=== PATIENT | female | born 1995 | race African-American/Black ===

== ENCOUNTER 2024-08-04 08:55 | Emergency (ER) | payer OTHER ==
[~2024-08-04] VITALS: Ht 157.5 cm; Wt 72.1 kg
[~2024-08-04 08:55] MED LIST: 0.9126SP BNOSTRILS; ALBU8.5H8 IH; AZIT250T13 PO; CIPR10DR RIGHTEYE; FLUT16SP BNOSTRILS; LORA10TA7 PO
[2024-08-04] MEDS ORDERED: RALT400T PO (11:01)
[2024-08-04] MEDS ORDERED: LEVO1.5T38 PO (11:01)
[2024-08-04] MEDS ORDERED: EMTR1TAB6 PO (11:01)
[2024-08-04 11:12] LABS: BASOPHILS % (AUTO) 0.8 % (0.0-2.0); EOSINOPHILS # (AUTO) 0.2 K/uL (0.0-0.7); EOSINOPHILS % (AUTO) 5.5 % (0.0-7.0); HEMOGLOBIN 10.9 g/dL (10.9-14.3); LYMPHOCYTES # (AUTO) 1.6 K/uL (0.8-4.8); LYMPHOCYTES % (AUTO) 47.4 % (20.5-51.5); MEAN CORPUSCULAR HEMOGLOBIN 27.2 uug (24.7-32.8); MEAN CORPUSCULAR HGB CONC 33 g/dL (32.3-35.6); MEAN CORPUSCULAR VOLUME 82.1 fL (75.5-95.3); MONOCYTES # (AUTO) 0.5 K/uL (0.1-1.30); MONOCYTES % (AUTO) 14.8 % (0.0-11.0); NEUTROPHILS # (AUTO) 1.1 K/uL (1.8-8.9); NEUTROPHILS % (AUTO) 31.5 % (38.5-71.5); PLATELET COUNT (AUTO) 298 K/uL (179-408); RED BLOOD CELL COUNT(AUTO) 4.02 MIL/uL (3.63-4.92); RED CELL DISTRIBUTION WIDTH 14.2 % (12.3-17.7); WHITE BLOOD COUNT (AUTO) 3.4 K/uL (3.8-11.8)
[2024-08-04] MEDS ORDERED: CEFI400C4 PO (11:27)
[2024-08-04] MEDS ORDERED: DOXY100C5 PO (11:27)
[2024-08-04 11:29] VITALS: BP 108/76; TEMP 97.8; O2SAT 99
[2024-08-04 11:31] LABS: ALANINE AMINOTRANSFERASE 15 U/L (14-59); ALBUMIN 3.4 g/dL (3.4-5.0); ALKALINE PHOSPHATASE 65 U/L (50-136); ASPARTATE AMINOTRANSFERASE 16 U/L (15-37); BILIRUBIN,DIRECT 0.1 mg/dL (0.0-0.2); BILIRUBIN,TOTAL 0.7 mg/dL (0.2-1.0); CALCIUM 8.8 mg/dL (8.5-10.1); CARBON DIOXIDE 27 mmol/L (21-32); CHLORIDE 105 mmol/L (98-107); CREATININE 0.8 mg/dL (0.6-1.3); GLUCOSE 92 mg/dL (74-106); POTASSIUM 3.8 mmol/L (3.5-5.1); SODIUM SERUM 141 mmol/L (136-145); TOTAL PROTEIN, SERUM 6.7 g/dL (6.4-8.2); UREA NITROGEN, BLOOD 14 mg/dL (7-18)
[2024-08-04 11:34] LABS: DIFFERENTIAL COMMENT 1
[2024-08-04 11:41] LABS: PREGNANCY TEST SERUM QUAN < 1 miul/L (0-6)
[2024-08-04 11:52] LABS: HIV-1 p24 ANTIGEN NON REACTIVE (NONREACTIVE); HIV-1/2 ANTIBODY NON REACTIVE (NONREACTIVE)
[2024-08-05 05:09] LABS: HEPATITIS B SURFACE AB, QUAL Non Reactive (.); HEPATITIS B SURFACE AG Negative (Negative); HEPATITIS C VIRUS ANTIBODY Non Reactive (Non Reactive)
[2024-08-06 01:09] LABS: *CHLAMYDIA NAA Negative (Negative); *GC NAA Negative (Negative); *TRIC.VAG. NAA Negative (Negative)
== END 2024-08-04 11:29 | disposition home or self-care (01) ==
LOC: ER 08:55
DX: T76.21XA Adult sexual abuse, suspected, initial encounter (principal); J45.909 Unspecified asthma, uncomplicated; R10.2 Pelvic and perineal pain; Z79.3 Long term (current) use of hormonal contraceptives; Z79.624 Long term (current) use of inhibitors of nucleotide synthesis; Z88.0 Allergy status to penicillin; Z60.2 Problems related to living alone; Y08.89XA Assault by other specified means, initial encounter; Y93.89 Activity, other specified; Y92.89 Other specified places as the place of occurrence of the external cause; Y99.8 Other external cause status
CPT/HCPCS: 36415; 76856; 85025; 85730; 86592; 86706; 86803; 86850; 86900; 86901; 87340; 87491; 87806; A4606; A4663